=== PATIENT | female | born 1970 | race Caucasian/White ===

== ENCOUNTER → 2019-07-28 | Outpatient (CLI) | payer OTHER ==
--- NOTE | 2019-07-29 15:32 | SLEEP ---
DATE OF STUDY: 07/28/2019 HOME SLEEP STUDY ATTENDING PHYSICIAN: Gerhard Roblero MD The patient is a 48-year-old who weighs 150 pounds with a BMI of 27.4. The patient's [place] score was 11. The patient underwent home sleep study performed at [facility]. Total recording time was 433 minutes. During the night study, the patient had no obstructive or central apneas. There were 12 mixed apneas and no hypopneas. The patient's AHI was only 1.7 per hour. Nocturnal oximetry study revealed no significant desaturation. Average saturation of 94%. Mean heart rate 72 beats per minute. IMPRESSION: 1. No clinically significant sleep disorder breathing. 2. No clinically significant nocturnal hypoxia. RECOMMENDATIONS: 1. The patient does not meet the criteria for CPAP initiation. 2. Weight loss to the ideal body weight is recommended. KIYA MARC MD DR: LEO/[email or web address] JOB#: [id number] / [id number]
== END | disposition home or self-care (01) ==
LOC: RT 07:31
PROVIDERS: ATTEND Family Medicine
DX: G47.10 Hypersomnia, unspecified (principal); R06.83 Snoring
CPT/HCPCS: G0399